=== PATIENT | male | born 1995 | race Hispanic/Latino ===

== ENCOUNTER 2021-10-14 00:45 | Emergency (ER) | payer SELFPAY ==
--- NOTE | 2021-10-14 01:07 | EDPHYS ---
Physician Documentation [facility] Name: Brody Gonzales Age: 26 yrs Sex: Male : 1995 Arrival Date: 10/14/2021 Time: 00:47 Bed 19 Private MD: ED Physician Chidi Chacon HPI: 10/14 01:02 This 26 yrs old Male presents to ER via Ambulatory with complaints of Penile rn Pain. 01:02 The patient presents with tenderness, that is mild. Onset: The symptoms/episode rn began/occurred 3 day(s) ago. Modifying factors: The symptoms are alleviated by nothing, the symptoms are aggravated by nothing. Associated signs and symptoms: Pertinent negatives: fever, hematuria. Severity of symptoms: At their worst the symptoms were mild, in the emergency department the symptoms have improved. The patient has not experienced similar symptoms in the past. Pt reports had sex with his a few days ago, no episode of acute pain or injury at time of intercourse. The next day noticed penis felt a little numb and felt a small purple bump on proximal/dorsum of penis. Discoloration and bump have gone away, but he is nervous her injured his penis. No drainage. NO fever. Denies current pain.. Historical: - Allergies: 00:58 No Known Allergies; lp1 - Home Meds: 00:58 None [Active]; lp1 - PMHx: 00:58 SVT; lp1 - PSHx: 00:58 Knee surgery; lp1 - Immunization history:: Adult Immunizations up to date. - Social history:: Smoking status: Patient reports the use of cigarette tobacco products, denies chronic smoking, but will smoke occasionally. - Family history:: not pertinent. - Hospitalizations: : No recent hospitalization is reported. ROS: 01:02 Constitutional: Negative for fever, chills, and weight loss, Abdomen/GI: Negative for rn abdominal pain, nausea, vomiting, diarrhea, and constipation, : Denies current penile pain/swelling/discoloration Exam: 01:02 Constitutional: This is a well developed, well nourished patient who is awake, alert, rn seems a little anxious Male : Normal genitalia with no discharge or lesions. No palpable mass, no tenderness, no deformity. Vital Signs: 00:59 BP 123 / 78; Pulse 95; Resp 18; Temp 98.3(TE); Pulse Ox 95% on R/A; Weight 72.57 kg; lp1 Height 5 ft. 6 in. (167.64 cm); Pain 5/10; 00:59 Body Mass Index 25.82 (72.57 kg, 167.64 cm) lp1 MDM: 00:47 Patient medically screened. rn 01:02 Differential diagnosis: superficial injury of penis, venous injury/bruising, rn thrombophlebitis. Data reviewed: vital signs, nurses notes, and as a result, I will discharge patient. Special discussion: I discussed with the patient/guardian in detail that at this point there is no indication for admission to the hospital. It is understood, however, that if the symptoms persist or worsen the patient needs to return immediately for re-evaluation. ED course: Completely normal exam, no acute complaints, will dc home with penile rest, given return precautions, and told to f/u with urology if symptoms worsen. 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
--- NOTE | 2021-10-14 01:07 | ER ---
Nurse's Notes [facility] Name: Brody Gonzales Age: 26 yrs Sex: Male : 1995 Arrival Date: 10/14/2021 Time: 00:47 Bed 19 Private MD: Diagnosis: Contusion of penis Presentation: 10/14 00:57 Chief complaint: Patient states: Reports last intercourse about 3 days ago, slight pain lp1 to penis but states numbness today and purple in color; Denies any discharge or pain with urination. Coronavirus screen: At this time, the client does not indicate any symptoms associated with coronavirus-19. Ebola Screen: No symptoms or risks identified at this time. Risk Assessment: Do you want to hurt yourself or someone else? Patient reports no desire to harm self or others. Onset of symptoms was October 14, 2021. 00:57 Method Of Arrival: Ambulatory lp1 00:57 Acuity: SUSANNAH 4 lp1 00:59 Initial Sepsis Screen: Does the patient meet any 2 criteria? No. Patient's initial lp1 sepsis screen is negative. Does the patient have a suspected source of infection? No. Patient's initial sepsis screen is negative. Historical: - Allergies: 00:58 No Known Allergies; lp1 - Home Meds: 00:58 None [Active]; lp1 - PMHx: 00:58 SVT; lp1 - PSHx: 00:58 Knee surgery; lp1 - Immunization history:: Adult Immunizations up to date. - Social history:: Smoking status: Patient reports the use of cigarette tobacco products, denies chronic smoking, but will smoke occasionally. - Family history:: not pertinent. - Hospitalizations: : No recent hospitalization is reported. Screenin:13 Abuse screen: Denies threats or abuse. Denies injuries from another. Nutritional lp1 screening: No deficits noted. Tuberculosis screening: No symptoms or risk factors identified. Fall Risk None identified. Assessment: 01:11 General: Appears in no apparent distress. Behavior is calm, cooperative. Pain: lp1 Complains of pain in shaft of penis Pain currently is 5 out of 10 on a pain scale. Neuro: Level of Consciousness is awake, alert, obeys commands. Cardiovascular: Patient's skin is warm and dry. Respiratory: Respiratory effort is even, unlabored. GI: No signs and/or symptoms were reported involving the gastrointestinal system. : Denies burning with urination, discharge. EENT: No signs and/or symptoms were reported regarding the EENT system. Derm: Skin is pink, warm \T\ dry. Musculoskeletal: No deficits noted. Vital Signs: 00:59 BP 123 / 78; Pulse 95; Resp 18; Temp 98.3(TE); Pulse Ox 95% on R/A; Weight 72.57 kg; lp1 Height 5 ft. 6 in. (167.64 cm); Pain 5/10; 00:59 Body Mass Index 25.82 (72.57 kg, 167.64 cm) lp1 ED Course: 00:47 Patient arrived in ED. bp1 00:47 Chidi Chacon MD is Attending Physician. rn 00:56 Arm band placed on. lp1 00:58 Triage completed. lp1 01:11 Taimka Ramos RN is Primary Nurse. lp1 01:13 Patient has correct armband on for positive identification. lp1 01:13 No provider procedures requiring assistance completed. Patient did not have IV access lp1 during this emergency room visit. Administered Medications: No medications were administered Medication: 01:13 VIS not applicable for this client. lp1 Outcome: 01:06 Discharge ordered by . rn 01:13 Discharged to home ambulatory. lp1 01:13 Condition: good 01:13 Discharge instructions given to patient, Instructed on discharge instructions, follow up and referral plans. Demonstrated understanding of instructions, follow-up care. 01:13 Patient left the ED. lp1 Signatures: Chidi Chacon MD MD rn Pena, Laura, RN RN lp1 Ankita Leon bp1 Corrections: (The following items were deleted from the chart) 01:06 00:59 72.57 kg; Height 5 ft. 6 in.; BMI: 25.8; Pain 5/10; lp1 lp1 01:13 00:57 Acuity: SUSANNAH 3 lp1 lp1
[2021-10-14 01:31] VITALS: BP 123/78; TEMP 98.3; O2SAT 95
== END 2021-10-14 01:13 | disposition home or self-care (01) ==
LOC: ER 00:45
DX: S30.21XA Contusion of penis, initial encounter (principal); F17.210 Nicotine dependence, cigarettes, uncomplicated
CPT/HCPCS: 99281